=== PATIENT | male | born 1990 | race Caucasian/White ===

== ENCOUNTER 2017-04-29 19:53 | Emergency (ER) | payer OTHER ==
[~2017-04-29] VITALS: Ht 177.8 cm; Wt 94.3 kg
[2017-04-29 19:58] VITALS: TEMP 36.7; Ht 177.8 cm; Wt 94.3 kg
--- NOTE | 2017-04-29 20:29 | EMERGENCY ROOM VISIT NOTE ---
History First contact with patient: 20:02 Chief Complaint: SORETHROAT Stated Complaint: SORE THROAT, CHEST CONGESTION History of Present Illness The patient is a 26 year old male who presents to the Emergency Room with complaints of sore throat and slight cough which started this morning. The patient states that he woke up with a tickle in his throat. He states that he has had a slight sore throat throughout the day. He also reports that he occasionally coughs due to the "tickle in his throat." He rates his overall discomfort a 6/10. He denies any fevers/chills. He denies any abdominal pain, nausea, vomiting, neck pain/stiffness or headache. The patient states that he is concerned because his just had a baby today and he does not want to get the baby sick. Review of Systems A complete 10 point review of systems was reviewed with the patient with pertinent positives and negatives as per history of present illness. All else were negative. Social History Smoking Status: Never Smoker Current/Historical Medications No Active Prescriptions or Reported Meds Physical Exam Vital Signs Date Time Temp Pulse Resp B/P (MAP) Pulse Ox O2 Delivery O2 Flow Rate FiO2 04/29/17 21:25 98 20 148/84 98 Room Air 04/29/17 20:07 Room Air 04/29/17 19:58 36.7 77 16 125/80 96 Room Air Physical Exam VITALS: Vitals are noted on the nurse's note and reviewed by myself. Vital signs stable. GENERAL: This is a 26-year-old male, in no acute distress, nondiaphoretic, well- developed well-nourished. SKIN: The skin was without rashes. EARS: External auditory canals clear, tympanic membranes pearly ramirez without erythema or effusion bilaterally. EYES: Pupils equal round and reactive to light and accommodation. NOSE: Patent, turbinates without inflammation or discharge. MOUTH: Mucous membranes moist. Tonsils are not enlarged. Pharynx minimally erythematous. NECK: Supple without nuchal rigidity. No lymphadenopathy. HEART: Regular rate and rhythm without murmurs gallops or rubs. LUNGS: Clear to auscultation bilaterally without wheezes, rales or rhonchi. No retractions or accessory muscle use. NEURO: Patient was alert and oriented to person place and time. Medical Decision & Procedures Medical Decision Differential diagnosis includes strep pharyngitis, viral illness, pneumonia, among others. The patient was evaluated as above. There are no significant findings on exam. Lungs are clear to auscultation and I'm not suspicious of pneumonia. Rapid strep swab was performed and was negative. Culture is pending. Patient likely has a mild viral illness and was instructed on conservative measures. He is concerned about passing this illness to his son and I recommended that he wash his hands frequently to prevent this. Patient was agreeable to this. He will follow-up with his primary care provider for any persistent or worsening symptoms. He verbalized understanding of my assessment and treatment plan and was discharged home in good condition. Medication Reconcilliation Current Medication List: was personally reviewed by me Blood Pressure Screening Patient's blood pressure: Normal blood pressure Impression Primary Impression: Sore throat Departure Information Dispostion Home / Self-Care Condition GOOD Prescriptions No Active Prescriptions or Reported Meds Referrals No Doctor, Assigned (PCP) Patient Instructions My [facility] Additional Instructions For pain control, you can use the following [id number] medicines (if >12 yo): - Regular strength (325mg/tab) Tylenol (acetaminophen) 2 tabs every 4-6 hours as needed. Do not exceed 12 tablets in a 24 hour period. Avoid taking more than 4 grams (4000 mg) of Tylenol per day. This includes any other sources of acetaminophen you may take on a regular basis. - Regular strength (200 mg/tab) Advil (ibuprofen) 1-2 tabs every 4-6 hours as needed. Do not exceed a dose of 3200 mg per day. Rest and drink plenty of fluids. Wash your hands frequently to prevent the spreading of any viruses. Follow-up with your primary care provider next week for any persistent symptoms. Return to the emergency department with any worsening or new/concerning symptoms.
[2017-04-29 21:25] VITALS: BP 148/84; PULSE 98; O2SAT 98
== END 2017-04-29 21:46 | disposition home or self-care (01) ==
LOC: C.EDB 19:56 → C.EDC 21:46
DX: J02.9 Acute pharyngitis, unspecified (principal)